=== PATIENT | female | born 1975 | race American Indian/Alaskan Native ===

== ENCOUNTER 2016-12-24 09:43 | Day surgery (SDC) | payer MEDICAID, OTHER | END 2016-12-24 09:44 | disposition home or self-care (01) | LOC: OPU 09:43 | PROVIDERS: ATTEND Internal Medicine Cardiovascular Disease | DX: I42.9 Cardiomyopathy, unspecified (principal); Z53.8 Procedure and treatment not carried out for other reasons ==